=== PATIENT | female | born 1975 | race Asian ===

== ENCOUNTER 2016-11-25 23:53 | Outpatient (CLI) | payer OTHER | END 2016-11-25 23:59 | disposition home or self-care (01) | LOC: LABW 23:53 | DX: R97.1 Elevated cancer antigen 125 [CA 125] (principal); N85.01 Benign endometrial hyperplasia; D25.9 Leiomyoma of uterus, unspecified; N92.1 Excessive and frequent menstruation with irregular cycle; R10.2 Pelvic and perineal pain; R93.8 Abnormal findings on diagnostic imaging of other specified body structures | CPT/HCPCS: 86304 ==

== ENCOUNTER 2017-12-17 08:38 | Outpatient (CLI) | payer OTHER | END 2017-12-17 23:21 | disposition home or self-care (01) | LOC: MAMMO 08:38 | DX: N60.22 Fibroadenosis of left breast (principal) ==

== ENCOUNTER 2021-04-03 16:30 | Outpatient (CLI) | payer OTHER | END 2021-04-03 20:10 | disposition home or self-care (01) | LOC: RAD 16:30 | PROVIDERS: ATTEND Nurse Practitioner Family | DX: M25.561 Pain in right knee (principal) ==

== ENCOUNTER 2021-05-28 18:00 | Outpatient (CLI) | payer OTHER ==
[2021-05-28 20:40] LABS: PLATELET COUNT 155 K/uL (152-353)
[2021-05-28 21:16] LABS: POTASSIUM 4.5 mmol/L (3.6-5.2)
[2021-05-28 21:49] LABS: PARTIAL THROMBOPLASTIN TIME 21.9 SECONDS (24.5-33.6)
== END 2021-05-28 19:04 | disposition home or self-care (01) ==
LOC: LABW 18:00
PROVIDERS: ATTEND Podiatrist Foot & Ankle Surgery
DX: M20.41 Other hammer toe(s) (acquired), right foot (principal); M20.42 Other hammer toe(s) (acquired), left foot
CPT/HCPCS: 80048; 85027; 85610; 85730